=== PATIENT | female | born 1945 | race Caucasian/White ===

== ENCOUNTER 2020-03-17 11:03 | Inpatient (IN) ==
[2020-03-17] MEDS ORDERED: ASPIRIN PO ONE (11:16)
--- NOTE | 2020-03-17 11:37 | PROVIDER DOCUMENTATION ---
HPI-Respiratory General - General Chief Complaint: Shortness of Breath Stated Complaint: RESPIRATORY ISSUES Time Seen by Provider: 03/17/20 11:03 Source: patient Allergies/Adverse Reactions: Patient Allergies Allergy/AdvReac Type Severity Reaction Status Date / Time No Known Allergies Allergy Verified 11/11/17 18:07 Home Medications: Home Medication List Medication Instructions Recorded Confirmed Last Taken Type Lisinopril 10 mg PO HS 03/04/14 11/11/17 03/04/14 07:00 History 10 mg - History of Present Illness-Resp Nature of Presenting Problem: 74 YOF with PMH of HTN and seasonal allergies, presents with c/o cough, sob, CP, nasal congestion x 3 weeks, has been seen by PCP in telemedicine visit and tr eated with abx and prednisone but reports symptoms have not improve. She reports that she is having to sleep on 3 pillows at home for comfort related to the SOB, she has had subjective fevers, no known sick contacts. CP is described as sharp in nature, nonradiating, no improving or aggravating factors. No chest wall tenderness Quality of Pain: reports: sharp Severity in ED: reports: moderate Onset/Duration: reports: other (3 wks) Timing: reports: intermittent, getting worse Context: reports: recent URI Exposure: reports: unknown cause Cough Quality/Degree: reports: moderate Episode Frequency: occasional episodes (reports she gets bronchitis yearly) Current Respiratory Medication Therapy: Initiated prednisone, Initiated other (abx) Modifying Factors: improves with: sitting upright. worse with: exertion, coughing Associated Symptoms: reports: chest pain/soreness, cough, fever/chills, nasal congestion, shortness of breath. denies: wheezing Similar Symptoms Previously?: No Recently seen or treated by another doctor?: No Review of Systems - Adult - REVIEW OF SYSTEMS - ADULT Constitutional: reports: fever. denies: no symptoms reported, see HPI, chills, fatique, night sweats, weight gain, weight loss, other Eyes: reports: no symptoms reported. denies: decreased vision, blurred vision, double vision Ears, Nose, Mouth & Throat: reports: no symptoms reported. denies: epistaxis, sinus problem, nose pain, loose teeth, mouth/dental pain, mouth swelling Cardiovascular: reports: chest pain, orthopnea. denies: palpitations, PND Respiratory: reports: cough, dyspnea on exertion, shortness of breath. denies: no symptoms reported, see HPI, chronic cough, excessive sputum production, hemoptysis, pleurisy, wheezing, other Gastrointestinal: reports: no symptoms reported. denies: constipation, diarrhea, nausea Genitourinary: reports: no symptoms reported. denies: discharge, flank pain, frequent UTI's, hematuria Musculoskeletal: reports: no symptoms reported. denies: see HPI, bone pain, back pain, frequent leg cramps, joint pain, joint swelling, muscle aches, muscle weakness, neck pain, other Integumentary: reports: no symptoms reported. denies: see HPI, hives, hair loss, itching, mole changes, nail changes, rash, skin sores/ulcer, skin thickening, other Neurological: reports: no symptoms reported. denies: see HPI, ataxia, dizzi ness/vertigo, headache/migraines, loss of balance, numbness, paresthesia, seizure, slurred speech, syncope, tremors, other Psychiatric: reports: no symptoms reported. denies: see HPI, anxiety, anti- depressant use, alcohol/drug dependence, depression, emotional problems, ins omnia, panic attacks, suicidal thoughts, other Endocrine: reports: no symptoms reported. denies: see HPI, change in skin pigment, excessive sweating, goiter, cold intolerance, heat intolerance, increased hunger, increased thirst, polyuria, other Hematologic/Lymphatic: reports: no symptoms reported. denies: see HPI, blood clots, easy bruising, low blood count, lymphedema, prolonged bleeding, swollen lymph nodes, transfusions, other Allergic/Immunologic: reports: no symptoms reported. denies: see HPI, allergic reactions, allergic rhinitis, asthma, eczema, food allergy, frequent infections, hay fever, hives, positive PPD, urticaria, other Past History - Adult - PAST MEDICAL HISTORY-ADULT Review of Records: reports: Nursing Assessment Review, Social history reviewed & non-contributory. Major Childhood Illnesses: reports: denies history Cardiovascular: reports: HTN - PRIOR SURGERIES/PROCEDURES Surgical/Procedure History: reports: hysterectomy, orthopedic (extremity) - IMMUNIZATION STATUS Childhood Immunizations: See Nurse Assessment Flu Vaccine: See Nurse Assessment Physical Exam-General - PHYSICAL EXAM-ADULT Initial Vital Signs Reviewed: Yes - CONSTITUTIONAL General Appearance: appears well, alert, no apparent distress - EYES Eyes: PERRL/EOMI, pink conjunctivae - HEAD, EARS, NOSE, MOUTH & THROAT HENMT: normocephalic/atraumatic, moist mucous membranes, normal ENT inspection - NECK Neck: non-tender, full range of motion, supple - RESPIRATORY Respiratory: chest non-tender, lungs clear, normal breath sounds, no pleuratic chest pain, no respiratory distress - CARDIOVASCULAR Cardiovascular: normal peripheral pulses, no edema, no gallop, no JVD, no murmur , tachycardia - GASTROINTESTINAL (ABDOMEN) Abdominal Exam: normal bowel sounds, non tender, soft - LYMPHATIC Lymphatic: no adenopathy - MUSCULOSKELETAL Back Exam: normal inspection, no CVA tenderness, no vertebral tenderness Extremity: normal range of motion, non-tender, normal gait Peripheral Pulses: radial (R): 2+, radial (L): 2+ - NEUROLOGIC Neurologic: grossly normal - PSYCHIATRIC Psych/Mental Status: normal mood/affect, oriented x 3 - HEART Score HEART Score: History: Slightly Suspicious HEART Score: ECG: Non-Specific Repolarization Disturbance/LBBB/PM HEART Score: Age: > or = 65 Years HEART Score: Risk Factors for Atherosclerotic Disease: 1 or 2 Risk Factors HEART Score: Troponin: < or = Normal Limit Total HEART Score:: 4 Progress - PLAN OF CARE/RESULTS Progress/Plan/Lab Results: Vital Signs - 8 hr 03/17/20 11:28 03/17/20 15:40 Temperature 98.7 F Pulse Rate 108 H 123 H Respiratory Rate 20 27 H Blood Pressure 115/91 150/109 O2 Sat by Pulse Oximetry 97 97 03/17/20 11:32 Influenza Screen - Final Nasopharyngeal 03/17/20 11:32 Group A Strep Rapid Antigen - Final Throat Laboratory Results - last 24 hr 03/17/20 03/17/20 03/17/20 11:32 11:32 11:32 WBC 10.35 RBC 4.68 Hgb 13.3 Hct 40.1 MCV 85.7 MCH 28.4 MCHC 33.2 RDW Std Deviation 13.9 Plt Count 322 MPV 10.1 Immature Gran % (Auto) 0.3 Neut % (Auto) 74.0 Lymph % (Auto) 15.7 L [place] % (Auto) 8.3 Eos % (Auto) 1.2 Baso % (Auto) 0.5 Immature Gran # (Auto) 0.03 Neut # (Auto) 7.66 H Lymph # (Auto) 1.63 [place] # (Auto) 0.86 H Eos # (Auto) 0.12 Baso # (Auto) 0.05 PT INR PTT (Actin FS) D-Dimer, Quantitative Sodium 135 L Potassium 5.0 Chloride 98 Carbon Dioxide 22 L Anion Gap 15 BUN 23 H Creatinine 0.9 Estimated GFR/1.73 m2 > 60 BUN/Creatinine Ratio 26 Glucose 102 Calculated Osmolality 274 Calcium 9.3 Total Bilirubin 0.30 AST 49 H ALT 43 H Alkaline Phosphatase 85 Troponin T High Sens 7 Pai-X-Ogtyghpitbp Pept Total Protein 7.0 Albumin 4.0 Globulin 3.0 Albumin/Globulin Ratio 1.3 03/17/20 03/17/20 11:32 11:32 WBC RBC Hgb Hct MCV MCH MCHC RDW Std Deviation Plt Count MPV Immature Gran % (Auto) Neut % (Auto) Lymph % (Auto) [place] % (Auto) Eos % (Auto) Baso % (Auto) Immature Gran # (Auto) Neut # (Auto) Lymph # (Auto) [place] # (Auto) Eos # (Auto) Baso # (Auto) PT 13.8 INR 1.04 PTT (Actin FS) 35.9 D-Dimer, Quantitative 7.95 H Sodium Potassium Chloride Carbon Dioxide Anion Gap BUN Creatinine Estimated GFR/1.73 m2 BUN/Creatinine Ratio Glucose Calculated Osmolality Calcium Total Bilirubin AST ALT Alkaline Phosphatase Troponin T High Sens Ogq-G-Fadobfoumuh Pept 37 Total Protein Albumin Globulin Albumin/Globulin Ratio Orders Category Date Time Status Isolation [Isolation Precautions Setup] NOW Care 03/17/20 15:48 Active Misc. NRSG Communication Order DIRECTED Care 03/17/20 13:34 Active Misc. NRSG Communication Order DIRECTED Care 03/17/20 13:34 Active Saline Loc NOW Care 03/17/20 11:15 Active CHEST-PORTABLE [RAD] Stat Exams 03/17/20 11:15 Completed CTA [CT ANGIOGRM PULMONARY ARTERIES] [CT] Stat Exams 03/17/20 12:07 Completed BC [BLOOD CULTURE] [BLDCUL] Stat Lab 03/17/20 16:39 Uncollected CBC WITH ELECTRONIC DIFF [HEME] Stat Lab 03/17/20 11:32 Completed COMPREHENSIVE METABOLIC PANEL [CHEM] Stat Lab 03/17/20 11:32 Completed D-DIMER [COAG] Stat Lab 03/17/20 11:32 Completed DIRECT STREP Stat Lab 03/17/20 11:32 Completed INFLUENZA SCREEN A/B Routine Lab 03/17/20 11:32 Completed PRO B-NATRIURETIC PEPTIDE Stat Lab 03/17/20 11:32 Completed PROTIME WITH INR [COAG] Stat Lab 03/17/20 11:32 Completed PTT [COAG] Stat Lab 03/17/20 11:32 Completed TROPONIN T HIGH SENSITIVITY Stat Lab 03/17/20 11:32 Completed TROPONIN T HIGH SENSITIVITY Stat Lab 03/17/20 15:39 Uncollected Aspirin Med 03/17/20 11:16 Discontinued 81 mg PO NOW ONE CefTRIAXONE [Rocephin] 1 gm Med 03/17/20 15:40 Discontinued 0.9% Sodium Chloride Inj [Ns] 50 ml IV NOW Naloxone [Narcan] Med 03/17/20 13:18 Discontinued 0.2 mg IV NOW ONE EKG [EKG] Stat Ther 03/17/20 11:52 Ordered Result Diagrams: 03/17/20 11:32 03/17/20 11:32 - EKG 1 Time of EKG reading by physician:: 11:55 EKG Read and Signed by:: Manish Arizemndi EKG Interpretation (*Must complete 3 of following elements*): Abnormal Rate: 89 Rhythm: NSR with 1st degree AV block Mellen: normal QRS: normal VA Interval: normal ST Wave: normal Prior EKG Comparison: no prior EKG - XRAY 1 XRAY Study: Chest Impression: See EMR Report (EXAM: CHEST-PORTABLE HISTORY: CP TECHNIQUE: Single view COMPARISON: None. FINDINGS: The lungs are well expanded. The heart is not enlarged. The vessels are not distended. There are minimal increased markings in the lower lungs. No effusion identified. IMPRESSION: Possible small basilar infiltrates Electronically signed by Anjum Lewis 03/17/2020 12:28 PM 03/17/20 1228 Interpreting Physician: Anjum Lewis MD Dictated Date/Time: 03/17/20 1227 cc: Debbie Elizalde; Maria Victoria Fuller) - CT/MRI 1 CT Study: other (CTA Pulm) Impression: See EMR Report (EXAM: CT ANGIOGRM PULMONARY ARTERIES HISTORY: elevated ddimer, SOB, [place] TECHNIQUE: CT chest with intravenous contrast. Pulmonary arterial protocol with MIP images COMPARISON: None. FINDINGS: No pleural effusions. Moderate sized hiatal hernia. Heart is mildly enlarged. No aortic aneurysm or dissection. There are calcified mediastinal and hilar nodes with scattered granuloma. Normal opacification of the pulmonary arteries and their proximal branches. No infiltrates. No bronchiectasis. Limited images through the upper abdomen reveal fatty infiltration of the liver and a 9 cm right renal cyst. IMPRESSION: 1.No pulmonary emboli 2.There is evidence of a prior granulomatous infection 3.Moderate sized hiatal hernia 4.Mild cardiomegaly with mild vascular distention This exam was performed using automated exposure control, adjustment of mA or kV according to patient size, and/or use of iterative reconstruction technique. Electronically signed by Anjum Lewis 03/17/2020 1:30 PM 03/17/20 1330 Interpreting Physician: Anjum Lewis MD Dictated Date/Time: 03/17/20 1327 cc: Debbie Elizalde; Maria Victoria Fuller) Comparison with other Films: no prior study - CONSULTS/PCP/HOSPITALIST Notification #1 *Consult/PCP/Hospitalist*: Sharon TIPTON hospitalist Time Discussed: 16:40 Consult Disposition: Admit Departure - Departure Date of Disposition Decision: 03/17/20 Time of Disposition Decision: 16:40 DIAGNOSIS: Pneumonia, Shortness of breath Disposition: ADMITTED INPATIENT 09 Certified Medical Emergency: Emergent Condition: Stable Referrals and Follow-Ups: Maria Victoria Fuller CRNP [Primary Care Provider] - - Critical Care Note This patient required my direct & personal management of CC.: No Attestation - Physician/ DIANE Attestation Patient care was provided by Advanced Practice Provider:: Yes Advanced Practice Provider:: Debbie Elizalde Advanced Practice Provider documentation review:: The Mid-level provider documentation, treatment plan and medical decision making was reviewed by the physician who agrees with all treatment and medical decision making by the MLP. The physician spent face to face time with patient:: No Advanced Practice Provider documentation review:: Supervising physician onsite and consulted in the evaluation and care of this patient. The physician did not have a face to face encounter with the patient.
[2020-03-17 11:48] LABS: BASO# 0.05 X1000 (0.0-0.2); BASO% 0.5 % (0.0-0.8); EOS# 0.12 X1000 (0.0-0.7); EOS% 1.2 % (0.0-10.0); HEMATOCRIT 40.1 % (37.0-47.0); HEMOGLOBIN 13.3 g/dL (12.0-16.0); IMM GRAN# 0.03 X1000 (0.0-0.04); IMM GRAN% 0.3 % (0.0-0.5); LYMPH# 1.63 X1000 (1.2-3.4); LYMPH% 15.7 % (20.5-51.1); MCH 28.4 PG (27-31); MCHC 33.2 g/dL (33-37); MCV 85.7 FL (81-99); MONO# 0.86 X1000 (0.11-0.59); MONO% 8.3 % (1.7-9.3); MPV 10.1 FL (7.4-10.4); NEUT# 7.66 X1000 (1.4-6.5); PLT 322 X1000 (130-400); RBC 4.68 XMIL (4.2-5.4); RDW 13.9 % (11.5-14.5); WBC 10.35 X1000 (4.8-10.8)
[2020-03-17 11:52] LABS: INR 1.04; PROTIME 13.8 Seconds (11.0-16.0)
[2020-03-17 11:53] LABS: PTT 35.9 Seconds (22.3-41.8)
[2020-03-17 12:00] LABS: AGAP 15; ALB/GLOB RATIO 1.3; ALKALINE PHOSPHATASE 85 U/L (32-104); BUN 23 mg/dL (8-22); CALCIUM 9.3 mg/dL (8.8-10.2); CHLORIDE 98 mmol/L (98-107); COSMO 274; CREATININE 0.9 mg/dL (0.5-0.9); ESTIMATED GFR > 60; GLUCOSE 102 mg/dL (70-104); GOT 49 U/L (10-30); GPT 43 U/L (10-36); SODIUM 135 mmol/L (136-145); TCO2 22 mmol/L (25-35)
--- NOTE | 2020-03-17 12:30 | Diag Imaging Result Doc PS360 ---
EXAM: CHEST-PORTABLE HISTORY: CP TECHNIQUE: Single view COMPARISON: None. FINDINGS: The lungs are well expanded. The heart is not enlarged. The vessels are not distended. There are minimal increased markings in the lower lungs. No effusion identified. IMPRESSION: Possible small basilar infiltrates Electronically signed by Anjum Lewis 03/17/2020 12:28 PM
[2020-03-17] MEDS ORDERED: NARCAN IV ONE (13:18)
--- NOTE | 2020-03-17 13:32 | Diag Imaging Result Doc PS360 ---
EXAM: CT ANGIOGRM PULMONARY ARTERIES HISTORY: elevated ddimer, SOB, [place] TECHNIQUE: CT chest with intravenous contrast. Pulmonary arterial protocol with MIP images COMPARISON: None. FINDINGS: No pleural effusions. Moderate sized hiatal hernia. Heart is mildly enlarged. No aortic aneurysm or dissection. There are calcified mediastinal and hilar nodes with scattered granuloma. Normal opacification of the pulmonary arteries and their proximal branches. No infiltrates. No bronchiectasis. Limited images through the upper abdomen reveal fatty infiltration of the liver and a 9 cm right renal cyst. IMPRESSION: 1.No pulmonary emboli 2.There is evidence of a prior granulomatous infection 3.Moderate sized hiatal hernia 4.Mild cardiomegaly with mild vascular distention This exam was performed using automated exposure control, adjustment of mA or kV according to patient size, and/or use of iterative reconstruction technique. Electronically signed by Anjum Lewis 03/17/2020 1:30 PM
[2020-03-17] MEDS ORDERED: ROCEPHIN 1 GM in NS 50 ML IV ONE (15:40)
[2020-03-17] MEDS ORDERED: NS 1,000 ML IV ONE (16:40)
[2020-03-17] MEDS ORDERED: ZOFRAN IV PRN (16:44)
--- NOTE | 2020-03-17 16:55 | EKG Report ---
Test Performed on : 03/17/2020 11:55:57 AM Test Reason : sob Blood Pressure : / mmHG Vent. Rate : 089 BPM Atrial Rate : 089 BPM P-R Int : 214 ms QRS Dur : 068 ms QT Int : 356 ms P-R-T Axes : 051 031 049 degrees QTc Int : 433 ms Sinus rhythm. with sinus arrhythmia. with 1st degree AV block. Otherwise normal ECG No previous ECGs available Unconfirmed Result
[2020-03-17] MEDS: ROCEPHIN 1 GM in NS 50 ML IV SCH (17:18)
[2020-03-17] MEDS: ZITHROMAX PO SCH (17:18)
[2020-03-17] MEDS: LOVENOX SUBQ SCH (17:20)
[2020-03-17 19:05] LABS: URINE SOURCE CLEAN CATCH
[2020-03-17 19:10] LABS: BILIRUBIN URINE NEGATIVE (NEGATIVE); BLOOD URINE NEGATIVE (NEGATIVE); COLOR YELLOW; GLUCOSE URINE NEGATIVE (NEGATIVE); KETONE URINE NEGATIVE (NEGATIVE); LEUKOCYTES URINE NEGATIVE (NEGATIVE); NITRITE URINE NEGATIVE (NEGATIVE); PH URINE 6.5; PROTEIN URINE TRACE mg/dL (NEGATIVE); TURBIDITY URINE CLEAR (CLEAR); UR EPITHELIAL CELLS <10 /HPF (<10); URINE BACTERIA NEGATIVE /HPF; URINE RBC <10 /HPF (<10); URINE WBC <10 /HPF (<10); UROBILINOGEN URINE NORMAL (NORMAL)
--- NOTE | 2020-03-17 20:12 | HISTORY AND PHYSICAL ---
CHIEF COMPLAINT: Shortness of breath, cough, nasal congestion x3 weeks. HISTORY OF PRESENT ILLNESS: This is a 74-year-old female with a history of hypertension and gastroesophageal reflux disease. She presents to the emergency room complaining of 3 weeks of cough, shortness of breath, chest pain on coughing, nasal congestion. She has been seen by her primary care physician and telemedicine. She was treated with antibiotics and prednisone x2, but reports symptoms have progressed to the point of sleeping on 3 pillows at home for comfort, which is abnormal for. She reports subjective fevers. No known sick contacts. She describes her chest pain as sharp. It can be reproduced with palpation as well as coughing. She denied any palpitations, any syncope or dizziness. PAST MEDICAL HISTORY: Hypertension, gastroesophageal reflux disease. PAST SURGICAL HISTORY: Hysterectomy. SOCIAL HISTORY: She denies any alcohol, tobacco or illicit drug use. ALLERGIES: No known drug allergies. HOME MEDICATIONS: Lisinopril 20 mg at bedtime, Prilosec 20 mg p.o. daily. REVIEW OF SYSTEMS: Discussed with patient with pertinent positives stated in the HPI. She denied any syncope or dizziness, any palpitations, any night sweats, any hemoptysis, any nausea, vomiting, diarrhea, constipation, black or bloody vomitus or stools, any hematuria, dysuria, frequency, urgency. PHYSICAL EXAMINATION: GENERAL: This is a 74-year-old female who is sitting up in the bed in no distress. VITAL SIGNS: Blood pressure is 115/91 with a heart rate of 100, respirations 20, temperature is 98.7 degrees with room air saturations 97% to 98%. HEENT: Head is normocephalic, atraumatic. Mucous membranes are moist. NECK: Supple with trachea midline. No JVD. CARDIOVASCULAR: Regular rate and rhythm. S1 and S2 appreciated. She has no lower extremity edema. No murmur noted. PULMONARY: Breath sounds are clear with no increased work of breathing noted. Chest rises and falls symmetric with respiration. Chest wall is tender to palpation midsternal. GASTROINTESTINAL: Abdomen is soft, nontender, nondistended with bowel sounds in all 4 quadrants. GENITOURINARY: No CVA or suprapubic tenderness. NEUROLOGIC: She is alert and oriented. SKIN: Warm and dry. LABORATORIES: 1. WBC is 10, hemoglobin 13.3, hematocrit 40.1 and platelets of 322,000. Sodium 135, potassium 5, BUN 23, creatinine 0.9 with a glucose of 102. Troponin is 7 x2. Chest x-ray, possible small basilar infiltrates. 2. CTA pulmonary revealed no pulmonary emboli, evidence of a prior granulomatous infection, moderate-sized hiatal hernia with mild cardiomegaly with vascular distention. 3. D-dimer was 7.9. ASSESSMENT: This is a 74-year-old female with: 1. Bibasilar pneumonia. 2. Shortness of breath. 3. Elevated D-dimer with a CTA pulmonary negative for pulmonary embolus. 4. History of hypertension. 5. Gastroesophageal reflux disease in a patient with a moderate-sized hiatal hernia. 6. Coronavirus Disease test pending from the emergency room. PLAN: 1. Admitted on telemetry. 2. Supplemental oxygen if needed. 3. Incentive spirometer. 4. Check EKG in the morning. Continue to trend troponin. 5. Bilateral lower extremity Doppler. 6. Antibiotics, Rocephin and azithromycin. 7. Gastric acid suppression with Protonix. 8. Deep venous thrombosis prophylaxis, Lovenox. 9. Patient will be in isolation per protocol until return of COVID-19 testing. 10. Plan was discussed with Dr. Bolivar. Further treatments pending hospital course. Dictated by DANUTA Mederos for Almas Marcelo MD cc: DANUTA Mederos MD
[2020-03-18 05:52] LABS: BASO# 0.04 X1000 (0.0-0.2); BASO% 0.6 % (0.0-0.8); EOS# 0.16 X1000 (0.0-0.7); EOS% 2.3 % (0.0-10.0); HEMOGLOBIN 12.6 g/dL (12.0-16.0); IMM GRAN# 0.02 X1000 (0.0-0.04); IMM GRAN% 0.3 % (0.0-0.5); LYMPH# 1.52 X1000 (1.2-3.4); LYMPH% 21.9 % (20.5-51.1); MCH 28.4 PG (27-31); MCHC 33.2 g/dL (33-37); MCV 85.6 FL (81-99); MONO# 0.67 X1000 (0.11-0.59); MONO% 9.7 % (1.7-9.3); MPV 10.2 FL (7.4-10.4); NEUT# 4.53 X1000 (1.4-6.5); NEUT% 65.2 % (42.2-75.2); PLT 287 X1000 (130-400); RBC 4.44 XMIL (4.2-5.4); RDW 13.6 % (11.5-14.5); WBC 6.94 X1000 (4.8-10.8)
--- NOTE | 2020-03-18 06:17 | EKG Report ---
Test Performed on : 03/18/2020 05:46:58 AM Test Reason : cp Blood Pressure : / mmHG Vent. Rate : 070 BPM Atrial Rate : 070 BPM P-R Int : 216 ms QRS Dur : 074 ms QT Int : 424 ms P-R-T Axes : 011 025 044 degrees QTc Int : 457 ms Sinus rhythm. with 1st degree AV block. Low voltage QRS Borderline ECG When compared with ECG of 17-MAR-2020 11:55, (Unconfirmed) No significant change was found Confirmed by Brynn PAGE, Yossi Velasco ([id number]) on 03/19/2020 9:25:20 AM
[2020-03-18 06:34] LABS: AGAP 12; BUN 17 mg/dL (8-22); CHLORIDE 99 mmol/L (98-107); COSMO 275; CREATININE 0.8 mg/dL (0.5-0.9); ESTIMATED GFR > 60; GLUCOSE 96 mg/dL (70-104); POTASSIUM 4.2 mmol/L (3.5-5.1); SODIUM 137 mmol/L (136-145); TCO2 26 mmol/L (25-35)
[2020-03-18] MEDS ORDERED: PRILOSEC PO ONE (11:04)
[2020-03-18] MEDS: MYLICON PO PRN (11:30)
--- NOTE | 2020-03-18 11:37 | PROGRESS NOTE ---
DATE: 03/18/2020 SUBJECTIVE: Patient definitely is breathing much better upon my examination. She is not requiring any oxygen supplementation today. No fever or chills. Some stomach upset reported. OBJECTIVE: Vital Signs: Temperature 98.0 degrees, heart rate 85, respiratory rate 18, blood pressure 122/76, O2 saturation 100% on room air. General Examination: This is a 74-year-old, female lying in bed, in no acute distress. Cardiovascular Examination: S1 and S2 heard. No murmurs, gallops, or rubs. Regular rate and rhythm. Respiratory Examination: Coarse breath sounds noted in both pulmonary bases. Patient is not using any accessory muscles or having work of breathing. Abdomen: Soft, nontender to palpation. Bowel sounds present. No organomegaly. Extremities: No clubbing, cyanosis, or edema. Peripheral pulses present in both legs. Neurological Examination: The patient is alert and oriented x3. Moves 4 extremities. Laboratory Data: Reviewed. Pulmonary arteriogram did not reveal any pulmonary emboli and there is evidence of a prior granulomatosis infection, mild cardiomegaly, and mild vascular distention. ASSESSMENT AND PLAN: 1. Bibasilar pneumonia. The patient is receiving Rocephin and azithromycin. Clinically, she is feeling much better. We will continue with the same management. 2. Hypertension. Blood pressure is under control. We will continue with the same medications. 3. Coronavirus disease test is still pending. The patient reports she has been sick for 21 days. 4. Disposition. We will continue to monitor this patient closely. If she is feeling okay tomorrow, we may let her go. cc: Almas Marcelo MD
[2020-03-18] MEDS: ROCEPHIN 1 GM in NS 50 ML IV SCH (17:14)
[2020-03-18] MEDS: LOVENOX SUBQ SCH (17:14)
[2020-03-18] MEDS: ZITHROMAX PO SCH (17:14)
[2020-03-18] MEDS ORDERED: PRINIVIL PO SCH (17:45)
[2020-03-19] MEDS: PRILOSEC PO SCH ×2 (05:15→06:12)
[2020-03-19] MEDS: MYLICON PO PRN (05:29)
[2020-03-19 08:20] VITALS: BP 123/75
[2020-03-19] MEDS ORDERED: PNEUMOVAX 23 IM ONE (12:13)
--- NOTE | 2020-03-19 13:11 | DISCHARGE SUMMARY ---
ADMISSION DATE: 03/17/2020 DISCHARGE DATE: 03/19/2020 ADMISSION DIAGNOSES: 1. Bibasilar pneumonia. 2. Shortness of breath. 3. Elevated D-dimer, negative pulmonary embolism. 4. History of hypertension. 5. Gastroesophageal reflux disease with a moderate-sized hiatal hernia. 6. Coronavirus Disease 2019 testing is pending from the emergency room. DISCHARGE DIAGNOSES: 1. Bibasilar pneumonia, on Rocephin and azithromycin. 2. Hypertension, under control. 3. Coronavirus Disease 2019 as of yesterday was pending and appears to still be pending. CONSULTATIONS: None. SURGERIES AND PROCEDURES: None. HOSPITAL COURSE: Ms. Meg Campbell is a 74-year-old, female, who apparently had been sick for at least 21 days, or 3 weeks worth of shortness of breath, cough, and nasal congestion. She presented with these complaints, was tested for COVID-19, which is still pending, and was found to have bibasilar pneumonia. She was initiated on IV antibiotic therapy. She also had an elevation of her D-dimer, which showed negative PE. The GERD was treated as well. She does have a moderately-sized hiatal hernia. She is much better now. She is going to be discharged home. DISCHARGE VITAL SIGNS: Temperature 97.8 degrees, heart rate 87, respiratory rate 16, blood pressure 123/75, O2 saturation 97% on room air. DISCHARGE LABORATORY DATA: White blood cells 6000, hemoglobin 12, hematocrit 38, platelet count 287,000. D-dimer was 7.95. Sodium 137, potassium 4.2, BUN 17, creatinine 0.8, glucose 96, calcium 9.0. MICROBIOLOGY: So far, influenza screening A and B are negative. Group A strep rapid antigen negative. Throat culture: No group A. Blood cultures: No growth after 48 hours. COVID-19 is currently pending. PERTINENT IMAGING: Chest x-ray: Small bibasilar infiltrates. Pulmonary arteriogram: No pulmonary emboli. There is evidence of a prior granulomatosis infection. Moderate-sized hiatal hernia. Mild cardiomegaly with mild vascular distention. An EKG showed sinus rhythm with a first- degree AV block, rate was 70, QTc was 457. DISCHARGE MEDICATIONS: 1. Lisinopril 20 mg p.o. nightly. 2. Albuterol/Atrovent nebulizers every 4 hours p.r.n. 3. Levaquin 750 mg p.o. daily for 7 days. 4. Protonix 40 mg p.o. daily. PHYSICIAN FOLLOWUPS: Maria Victoria Fuller on 03/23/2020 at 0930. DISCHARGE DIET: Regular. DISCHARGE ACTIVITY: As tolerated. DISCHARGE INSTRUCTIONS: Remain in quarantine, self-isolation until COVID-19 results are received. If results are positive, remain in quarantine for 14 days. If your condition changes, contact physician and/or return to the emergency department. Changes may include, but are not limited to, shortness of breath, increased fatigue, excessive bleeding, unexplained weight loss or gain, unmanageable pain, signs or symptoms of infection. Notify the physician for fever of 101 or above, shortness of breath, chest pain, worsening of symptoms, or other concerns. DISCHARGE DISPOSITION: Home. Dictated by DANUTA You for Almas Marcelo MD Addendum: Patient seen and examined by myself. Agree with DANUTA note. It reflects my assessment and plan. Patient is being discharged in stable condition. Will be seen by PCP in a week. cc: DANUTA You MD [facility]
[2020-03-19] MEDS ORDERED: PRINIVIL PO SCH (21:00)
--- NOTE | 2020-03-20 06:59 | Extremity Venous Study ---
PROCEDURE NAME: Venous U/S Bilateral Legs - 03/17/2020 REQUESTING PROVIDER: DANUTA Baldwin. INDICATION: Elevated D-dimer. ANODIZER: Eric. EQUIPMENT: [employer] Vivid E9 ultrasound system with a 9 L-D transducer. FINDINGS: Images of the bilateral lower extremity venous systems were obtained in both sagittal and transverse planes. Doppler was used to evaluate the veins for spontaneity, phasicity, respiratory excursion, and digital augmentation. RESULTS: Normal venous compression. Normal venous flow. No obvious superficial or deep venous thrombosis noted. INTERPRETATION: Essentially normal bilateral lower extremity venous study. cc: MD Rosie Campa CRNP
== END 2020-03-19 13:00 | disposition home or self-care (01) | DRG 195 ==
LOC: ED 11:03 → SUATTDRO 17:20 → 4N 17:20
PROVIDERS: ATTEND Internal Medicine